=== PATIENT | male | born 1970 | race Caucasian/White ===

== ENCOUNTER → 2024-12-02 11:09 | Outpatient (REF) | payer OTHER, SELFPAY ==
[2024-12-02 12:43] LABS: Blood Urea Nitrogen 28 mg/dl (9-20); Calcium 9.2 mg/dl (8.4-10.2); Carbon Dioxide 27 mmol/L (22-30); Chloride 99 mmol/L (98-107); Glucose 88 mg/dl (70-99); Potassium 4.3 mmol/L (3.5-5.1); Sodium 136 mmol/L (135-145); eGFR > 60.00
== END ==
LOC: RAD 11:09
PROVIDERS: ATTENDING PHYSICIAN Nurse Practitioner Family
DX: R31.0 Gross hematuria (principal); N20.0 Calculus of kidney
CPT/HCPCS: 36415; 76770; 80048

== ENCOUNTER → 2025-10-05 14:24 | Outpatient (REF) | payer OTHER, SELFPAY | LOC: RAD 14:24 | PROVIDERS: ATTENDING PHYSICIAN Nurse Practitioner Family | DX: R30.0 Dysuria (principal); N50.811 Right testicular pain | CPT/HCPCS: 76870; 93976 ==